=== PATIENT | male | born 1980 | race African-American/Black ===

== ENCOUNTER 2018-05-14 21:31 | Emergency (ER) | payer MEDICAID ==
[~2018-05-14] VITALS: Ht 170.2 cm; Wt 77.0 kg
[2018-05-14] MEDS ORDERED: AMOX TR/POT CLAV 875 MG/125 MG TABLET PO ONE (23:30)
[2018-05-14] MEDS ORDERED: PERTUSS(ACELL),DIPH,TET VAC/PF 0.5 ML VIAL IM ONE (23:30)
[2018-05-14] MEDS ORDERED: BACITRACIN 0.9 GM PACKET OINTMENT TP ONE (23:30)
[2018-05-14 23:56] VITALS: BP 116/74
== END 2018-05-14 23:58 | disposition home or self-care (01) ==
LOC: EMS 21:32
DX: S71.152A Open bite, left thigh, initial encounter (principal); W54.0XXA Bitten by dog, initial encounter; Y93.89 Activity, other specified; Y92.89 Other specified places as the place of occurrence of the external cause; Y99.8 Other external cause status
CPT/HCPCS: 73552; 90471; 90715